=== PATIENT | female | born 1995 | race Caucasian/White ===

== ENCOUNTER 2018-02-28 12:00 | Emergency (ER) | payer OTHER ==
[2018-02-28 12:06] VITALS: BP 143/95
[2018-02-28] MEDS ORDERED: PHENAZOPYRIDINE 100 MG TABLET PO STA (12:24)
[2018-02-28] MEDS ORDERED: NITROFURANTOIN MACRO 100 MG CAPSULE PO STA (12:24)
--- NOTE | 2018-02-28 12:27 | ED Physician Documentation ---
History of Present Illness - Stated complaint Stated Complaint: FEMALE - Chief complaint Chief Complaint: UTI - History obtained from History obtained from: Patient - History of Present Illness Timing: Today Pain level max: 4 Pain level now: 3 - Additonal information Additional information: Patient is a 23-year-old female who presents to the emergency department with dysuria, frequency and hematuria today. No vaginal bleeding or discharge. No nausea or vomiting. No back pain. No abdominal pain. Nothing makes it better. Worse with urination. Has had UTI's in the past Review of Systems Constitutional: denies: Fever, Chills GI: denies: Nausea, Vomiting : denies: Now EGA Skin: denies: Rash PD PAST MEDICAL HISTORY - Past Medical History Past Medical History: No - Past Surgical History Past Surgical History: Yes HEENT: Tonsil/Adenoidectomy Derm: Other - Present Medications Home Medications: Ambulatory Orders Medication Instructions Recorded Confirmed Nitrofurantoin Monohyd/M-Cryst 100 mg PO BID #10 capsule 02/28/18 [Macrobid 100 mg Capsule] Phenazopyridine HCl [Pyridium] 200 mg PO TID PRN #6 tablet 02/28/18 - Allergies Allergies/Adverse Reactions: Allergies Allergy/AdvReac Type Severity Reaction Status Date / Time No Known Drug Allergies Allergy Verified 02/28/18 12:03 - Social History Does the pt smoke?: No Smoking Status: Never smoker Does the pt drink ETOH?: No Does the pt have substance abuse?: No - Immunizations Immunizations are current?: Yes PD ED PE NORMAL - Vitals Vital signs reviewed: Yes - General General: Alert and oriented X 3, No acute distress - HEENT HEENT: Moist mucous membranes - Abdomen Abdomen: Soft, Non tender, Non distended - Back Back: No CVA TTP, No spinal TTP - Derm Derm: Warm and dry - Neuro Neuro: Alert and oriented X 3 - Psych Psych: Normal mood, Normal affect Results - Vitals Vitals: Vital Signs - 24 hr 02/28/18 12:03 Temperature 36.6 C Heart Rate 85 Respiratory 16 Rate Blood Pressure 143/95 H O2 Saturation 100 Oxygen O2 Source Room air PD MEDICAL DECISION MAKING - ED course Complexity details: reviewed results, considered differential, d/w patient ED course: Patient with a UTI. Will place on Macrobid and Pyridium. Otherwise well- appearing, nontoxic. No STD exposure. No possibility of . No evidence of pyelonephritis. Patient counseled regarding signs and symptoms for which I believe and urgent re-evaluation would be necessary. Patient with good understanding of and agreement to plan and is comfortable going home at this time This document was made in part using voice recognition software. While efforts are made to proofread this document, sound alike and grammatical errors may occur. - Sepsis Event Vital Signs: Vital Signs - 24 hr 02/28/18 12:03 Temperature 36.6 C Heart Rate 85 Respiratory 16 Rate Blood Pressure 143/95 H O2 Saturation 100 Oxygen O2 Source Room air Departure - Departure Disposition: Home, Self Care Clinical Impression: Urinary tract infection Qualifiers: Urinary tract infection type: acute cystitis Hematuria presence: with hematuria Qualified Code(s): N30.01 - Acute cystitis with hematuria Condition: Good Instructions: ED UTI Cystitis Female Follow-Up: your,doctor as needed [Other] Prescriptions: Nitrofurantoin Monohyd/M-Cryst [Macrobid 100 mg Capsule] 100 mg PO BID #10 capsule Phenazopyridine HCl [Pyridium] 200 mg PO TID PRN #6 tablet PRN Reason: dysuria Comments: Return if you worsen. Take all antibiotics until gone. Discharge Date/Time: 02/28/18 12:38
[2018-02-28 12:29] LABS: BILIRUBIN,URINE NEGATIVE (NEGATIVE); GLUCOSE, URINE (UA) NEGATIVE (NEGATIVE); KETONES,URINE (UA) NEGATIVE (NEGATIVE); LEUKOCYTE ESTERASE, URINE SMALL (NEGATIVE); NITRITE,URINE NEGATIVE (NEGATIVE); OCCULT BLOOD,URINE LARGE (NEGATIVE); PROTEIN,URINE NEGATIVE (NEGATIVE); UROBILINOGEN,URINE 0.2 (NORMAL) E.U./dL (NORMAL)
[2018-02-28 12:32] LABS: CLARITY,URINE CLEAR (CLEAR); HCG UR QUAL NEGATIVE
[2018-02-28 12:41] LABS: RBC,URINE 0-5 /HPF (0-5); SQUAMOUS EPITHELIAL CELL,UR MOD Squamous (<= Few)
[2018-02-28 12:42] LABS: BACTERIA,URINE Rare /HPF (None Seen)
== END 2018-02-28 12:38 | disposition home or self-care (01) ==
LOC: ED 12:00
DX: N30.01 Acute cystitis with hematuria (principal)
CPT/HCPCS: 81001; 81025; 99283; A9270; 81003; 87086